=== PATIENT | male | born 2000 | race Caucasian/White ===

== ENCOUNTER 2023-02-05 19:57 | Emergency (ER) | payer BC ==
[~2023-02-05] VITALS: Ht 182.9 cm; Wt 99.8 kg
[2023-02-05 20:11] VITALS: BP 116/56; PULSE 68; RESP 16; TEMP 97.8; O2SAT 97
[2023-02-05] MEDS ORDERED: CYCLOBENZAPRINE 10 MG TAB PO ONE (22:45)
[2023-02-05] MEDS ORDERED: KETOROLAC 30 MG/ML VIAL IM ONE (22:45)
[2023-02-05] MEDS ORDERED: IBUP-1842 PO (23:20)
[2023-02-05] MEDS ORDERED: CYCL-711 PO (23:20)
[2023-02-05] MEDS ORDERED: EMLAC TP (23:20)
[2023-02-05] MEDS ORDERED: ACET-5629 PO (23:45)
[2023-02-05] MEDS ORDERED: oxyCODONE/APAP 5/325 MG 1 TAB TAB PO ONE (23:50)
[2023-02-06 00:19] VITALS: BP 116/56; PULSE 68; RESP 16; TEMP 97.8; O2SAT 97
[2023-02-06] MEDS ORDERED: LIDOCAINE 5% 1 EA PATCH TP SCH (09:00)
[2023-02-07] MEDS ORDERED: ACET-5629 PO (14:55)
== END 2023-02-06 00:19 | disposition home or self-care (01) ==
LOC: MED 19:57
DX: M25.551 Pain in right hip (principal); Z79.899 Other long term (current) drug therapy
CPT/HCPCS: 72170; 96372; 99283; J1885